=== PATIENT | female | born 1965 | race Asian ===

== ENCOUNTER 2018-11-26 08:05 | Outpatient (CLI) | payer BC, SELFPAY ==
[2018-11-26 08:55] LABS: Glucose 119 mg/dL (70-100)
== END 2018-11-26 08:25 ==
PROVIDERS: PCP Family Medicine; Visit Provider Family Medicine
DX: R73.9 Hyperglycemia, unspecified (principal)
CPT/HCPCS: 36415; 82947; 83036

== ENCOUNTER 2018-12-27 00:56 | Outpatient (CLI) | payer OTHER, SELFPAY ==
--- NOTE | 2018-12-27 14:50 | DI.MAMMO_ITS ---
SYMPTOM/DIAGNOSIS: SCREENING, Z12.31 MAMMOGRAMS: Mammograms were interpreted according to the usual protocol including computer analysis with CAD system, tomosynthesis and C view imaging. Comparison is with the prior examinations. No suspicious masses or microcalcifications are seen. There is no definite evidence of malignancy. IMPRESSION: Negative mammogram. Routine screening is recommended. Category 1, breast density C. MQSA ASSESSMENT OF FINDINGS: Negative. Category 1. Patient will receive a letter notifying them of these results. Bi-RADS category C. The breasts are heterogeneously dense, which may obscure small masses.
== END 2018-12-27 01:16 ==
PROVIDERS: PCP Family Medicine; Visit Provider Family Medicine
DX: Z12.31 Encounter for screening mammogram for malignant neoplasm of breast (principal)
CPT/HCPCS: 77063; 77067

== ENCOUNTER 2019-02-18 08:41 | Emergency (ER) | payer OTHER, SELFPAY ==
[2019-02-18 08:51] VITALS: BP 110/71; PULSE 81; RESP 16; TEMP 36.8; O2SAT 100
--- NOTE | 2019-02-18 09:05 | ED.GENADUL_ITS ---
Discharge Plan Disposition Patient Disposition: HOME Condition: Stable Discharge Details Chief Complaint: Cellulitis Clinical Impression: Cellulitis Primary Care Provider: Elizabeth Griffith ED Provider: Li Burns Home Meds and New Rx's Prescriptions: New doxycycline hyclate 100 mg capsule 100 mg PO BID Qty: 19 RF: 0 Continued hydrocortisone acetate [Proctocort] 30 mg suppository 30 mg [place] BID RF: 0 ketotifen fumarate [Allergy Eye (ketotifen)] 0.025 % (0.035 %) drops 1 drp OP BID RF: 0 fexofenadine 60 MG tablet 1 tab PO QAM RF: 0 ascorbate calcium (vitamin C) 500 MG tablet 1 tab PO QAM RF: 0 montelukast 10 MG tablet 1 tab PO QAM RF: 0 cholecalciferol (vitamin D3) 1,000 UNITS tablet 1 tab PO QAM RF: 0 Discharge Instructions Instructions: Doxycycline (By mouth), Cellulitis (ED) Additional Instructions: Please return immediately to the emergency department if you develop any new or worsening symptoms, if your symptoms do not improve as expected, or if you become otherwise concerned. It is extremely important that you call as soon as possible to schedule an appointment for this week to be seen in follow-up for this visit by your primary care doctor. Referrals: Elizabeth Griffith MD [Primary Care Provider] - Discharge Data Discharge Date/Time-TO BE ENTERED AT DEPARTURE: 02/18/19 11:29 Medical Decision Making Leticia Bahena is a 53 y/o woman with history of asthma presenting to the emergency department with 2 days of right lower leg pain and redness to the right lower leg since yesterday, otherwise asymptomatic. On exam patient is very well and nontoxic appearing. Erythema of the anterior right lower leg from ankle to the proximal lower leg, does not cross ankle or knee joint, clear line of demarcation just distal to the knee. +1 pitting edema of the right lower leg, no edema of the left leg. DP pulse barely palpable on the left, not palpable on the right, right foot warm and well-perfused. Full range of motion right knee, ankle. No pain with palpation of the posterior right calf. 0.5 cm very superficial healing skin wound to the right lateral lower leg, no drainage. No crepitus. Very mild pain with palpation of the erythematous area. Concern for cellulitis, DVT. Exam/history is not consistent with acute arterial pathology, sepsis, pulmonary embolism, necrotizing fasciitis.Uultrasound not available due to holiday, plan for screening labs, bedside ultrasound, nursing to Doppler right DP pulse. PT pulses intact and symmetric, b/l DP pulses present by doppler. [id number] bedside ultrasound performed by me, femoral vein and popliteal vein identified, good flow, compressible, no DVT identified. Labs resulted, non-diagnostic, d-dimer negative. Area of erythema outlined with surgical pen. Plan for doxycycline for cellulitis. Patient remains essentially asymptomatic other than rash, minimal leg pain in the area of erythema, no other pain or symptoms at this time. Continues to be very well-appearing and nontoxic. I had a lengthy discussion with the patient regarding return to emergency department precautions, home care, and importance of outpatient follow-up with her PCP this week. Patient verbalized understanding plan was amenable. All questions were answered. Patient was discharged home with clear plan for outpatient follow-up. Medical Records Medical records reviewed: Yes I reviewed the patient's medical records. Lab Data Lab results reviewed: Yes I reviewed the patient's lab results. Laboratory Tests Range/Units 02/18/19 02/18/19 02/18/19 09:52 09:52 09:52 WBC (4.4-10.8) k/cumm 6.43 RBC (4.00-5.20) m/cumm 4.67 Hgb (12.0-15.5) g/dL 14.4 Hct (36.0-46.0) % 42.1 MCV (80-95) fL 90.1 MCH (27.0-33.0) pg 30.8 MCHC (32.0-36.0) g/dL 34.2 RDW (11.7-14.6) % 13.4 Plt Count (130-400) x1000/uL 245 MPV (8.0-11.0) fL 9.9 Immature Gran % 0.2 Neutrophils % 68.5 Lymphocytes % 21.9 Monocytes % 7.5 Eosinophils % 1.7 Basophils % 0.2 Absolute Neutrophils (1.2-6.7) k/cumm 4.41 Absolute Lymphocytes (1.2-3.4) k/cumm 1.41 Absolute Monocytes (0.11-0.7) k/cumm 0.48 Absolute Eosinophils (0.0-0.7) k/cumm 0.11 Absolute Basophils (0.0-0.2) k/cumm 0.01 D-Dimer (<500) ng/mlFEU 275 Sodium (136-145) mmol/L 141 Potassium (3.5-5.1) mmol/L 3.9 Chloride (98-107) mmol/L 104 Carbon Dioxide (21.0-32.0) mmol/L 27.9 Anion Gap (3-11) mmol/L 9.1 BUN (7-18) mg/dL 24 H Creatinine (0.55-1.02) mg/dL 0.67 Estimated GFR/1.73 m2 (mL/min/1.73m2) >= 60.00 Glucose (70-100) mg/dL 113 H Calcium (8.5-10.1) mg/dL 8.6 Total Bilirubin (0.2-1.0) mg/dL 0.6 AST (15-37) U/L 18 ALT (14-59) U/L 24 Alkaline Phosphatase (46-116) U/L 115 Total Protein (6.4-8.2) g/dL 7.3 Albumin (3.4-5.0) g/dL 3.7 HPI General Mode of arrival: ambulatory . Date/Time Provider Initiated Documentation: 02/18/19 09:05 . Limitations to Documentation: no limitations . Information obtained by: patient, family, RN notes reviewed and old records reviewed . HPI Narrative: Leticia Bahena is a 53 y/o woman with history of asthma presenting to the emergency department with leg pain and redness. Patient reports that 2 days ago she noticed that her right lower leg seem generally painful. When she woke up yesterday morning she noticed redness of the leg that seems to have been worsening since onset. Patient reports that pain in the leg is unchanged, is limited to the area of the rash, is mild and feels like an aching sensation. Patient reports that she might of had a mosquito bite to lower leg that she scratched, but otherwise denies skin wound, insect bite/sting, or other trauma to the leg. Has been feeling otherwise in her usual state of health. No other pain, no fevers, no shortness of breath, no cough, no vomiting, no diarrhea, no other rash, no numbness, no weakness. Has been eating and drinking as usual. No recent immobilization, long car rides, or other travel. No history of blood clots in her or her family members. Related Data Home Medications Medication Instructions Recorded Confirmed ascorbate calcium (vitamin C) 1 tab PO QAM 09/21/13 02/18/19 cholecalciferol (vitamin D3) 1 tab PO QAM 09/21/13 02/18/19 fexofenadine 1 tab PO QAM 09/21/13 02/18/19 montelukast 1 tab PO QAM 09/21/13 02/18/19 hydrocortisone acetate 30 mg 30 mg WI BID 01/08/19 02/18/19 rectal suppository ketotifen fumarate 0.025 % (0.035 1 drp OP BID 01/08/19 02/18/19 %) eye drops doxycycline hyclate 100 mg PO BID #19 cap 02/18/19 Previous Rx's Medication Instructions Recorded doxycycline hyclate 100 mg PO BID #19 cap 02/18/19 Allergies Allergy/AdvReac Type Severity Reaction Status Date / Time Penicillins Allergy Unverified 02/18/19 08:53 General Stated Complaint: Cellulitis SULTANA: 4 Review of Systems Review of Systems Constitutional: denies fevers Eyes: denies eye pain ENT: denies facial pain, dental pain, sore throat Cardiovascular: denies chest pain Respiratory: denies SOB, cough GI: denies abdominal pain, vomiting, diarrhea : denies flank pain MSK: denies back pain, neck pain, arthralgias, myalgias Skin: Reports rash as per HPI Neuro: denies headaches, numbness, weakness [facility] Medical History Asthma (Chronic) Internal hemorrhoids [place] (Acute) Surgical History (Updated 04/04/18 @ 14:33 by [employer] [place]) Colonoscopy - IV Sedation Hemorrhoidectomy sinus surgery Family History (Updated 01/08/19 @ 09:05 by lAanna Maldonado RN) Other Diabetes Social History Smoking/Tobacco Use Status: Never Alcohol Intake: current Alcohol Intake frequency: a few times a month Drug use: Never Household members: spouse Exam Narrative Exam Narrative: Constitutional: well and [id number], pleasant, conversing normally HENT: head atraumatic/normocephalic/normal inspection, mucous membranes moist Eyes: conjunctiva normal, sclera normal, pupils 3mm b/l Neck: no stridor, normal ROM, trachea midline Resp: normal work of breathing, LCTAB Cardio: normal rate, normal rhythm, no murmur appreciated Skin: warm, dry, normal color, no rash Neuro: alert, not altered, grossly non-focal, normal tone Ext: Right leg with +1 pitting edema. Erythema anterior right lower leg from just distal to the knee to just proximal to the ankle, non-circumferential. Does not extend over joints. Full range of motion knee and ankle. no edema of the left leg. DP pulse barely palpable on the left, not palpable on the right, right foot warm and well-perfused, PT pulses intact and symmetric. Full range of motion right knee, ankle. No pain with palpation of the posterior right calf. 0.5 cm very superficial healing skin wound to the right lateral lower leg, no drainage. No crepitus. Very mild pain with palpation of the erythematous area. Walking about the emergency department without issue. Psych: normal mood, normal affect, normal behavior Course Vital Signs Temperature 36.8 C 02/18/19 08:51 Pulse 81 02/18/19 08:51 Respiratory Rate 16 02/18/19 08:51 Blood Pressure 110/71 02/18/19 08:51 Pulse Oximetry 100 02/18/19 08:51 Temperature 36.8 C 02/18/19 08:51 Temperature Source Skin 02/18/19 08:51 Pulse 81 02/18/19 08:51 Respiratory Rate 16 02/18/19 08:51 Respiratory Effort Non-Labored 02/18/19 08:54 Blood Pressure 110/71 02/18/19 08:51 Blood Pressure Position Sitting 02/18/19 08:51 Pulse Oximetry 100 02/18/19 08:51 Oxygen Delivery Method Room Air 02/18/19 08:51 Oxygen Flow Rate 0 02/18/19 08:51 Pain Level 7 02/18/19 08:51
[2019-02-18 09:59] LABS: Abs Immature Grans 0.01 k/cumm (0.0-0.09); Absolute Basophil Count 0.01 k/cumm (0.0-0.2); Absolute Eosinophil Count 0.11 k/cumm (0.0-0.7); Absolute Lymphocyte Count 1.41 k/cumm (1.2-3.4); Absolute Monocyte Count 0.48 k/cumm (0.11-0.7); Absolute Neutrophil Count 4.41 k/cumm (1.2-6.7); Basophils % 0.2; Eosinophils % 1.7; HCT 42.1 % (36.0-46.0); HGB 14.4 g/dL (12.0-15.5); Immature Grans % 0.2; Lymphocytes % 21.9; Mean Corp. HGB Concentration 34.2 g/dL (32.0-36.0); Mean Corpuscular Hemoglobin 30.8 pg (27.0-33.0); Mean Corpuscular Volume 90.1 fL (80-95); Mean Platelet Volume 9.9 fL (8.0-11.0); Monocytes % 7.5; Neutrophils % 68.5; Platelet Count 245 x1000/uL (130-400); RBC 4.67 m/cumm (4.00-5.20); RBC Distribution Width 13.4 % (11.7-14.6); White Blood Cell Count 6.43 k/cumm (4.4-10.8)
[2019-02-18 10:13] LABS: ALT 24 U/L (14-59); AST 18 U/L (15-37); Albumin 3.7 g/dL (3.4-5.0); Alkaline Phosphatase 115 U/L (46-116); Anion Gap 9.1 mmol/L (3-11); BUN 24 mg/dL (7-18); Bilirubin, Total 0.6 mg/dL (0.2-1.0); CO2 27.9 mmol/L (21.0-32.0); CREATININE 0.67 mg/dL (0.55-1.02); Calcium 8.6 mg/dL (8.5-10.1); Chloride 104 mmol/L (98-107); Glucose 113 mg/dL (70-100); Potassium 3.9 mmol/L (3.5-5.1); Sodium 141 mmol/L (136-145); Total Protein 7.3 g/dL (6.4-8.2)
[2019-02-18 10:31] LABS: D-Dimer 275 ng/mlFEU (<500)
[2019-02-18 11:21] VITALS: BP 110/71; PULSE 81; RESP 16; TEMP 36.8; O2SAT 100
[2019-02-18] MEDS: Doxycycline Hyclate 100 MG CAP PO (11:29)
== END 2019-02-18 11:29 | disposition home or self-care (01) ==
PROVIDERS: Emergency Provider Student in an Organized Health Care Education/Training Program; PCP Family Medicine
DX: L03.115 Cellulitis of right lower limb (principal)
CPT/HCPCS: 36415; 80053; 99283; 85025; 85379

== ENCOUNTER 2019-12-04 07:55 | Outpatient (REF) | payer OTHER, SELFPAY ==
[2019-12-04 15:00] LABS: Glucose 104 mg/dL (74-106)
[2019-12-04 15:01] LABS: Hemoglobin A1C 5.9 % (3.8-5.6)
== END 2019-12-04 08:15 ==
LOC: NCHCN 07:55
PROVIDERS: PCP Family Medicine; Visit Provider Family Medicine
DX: R73.03 Prediabetes (principal)
CPT/HCPCS: 82947; 83036

== ENCOUNTER 2020-01-01 00:46 | Outpatient (CLI) | payer OTHER, SELFPAY ==
--- NOTE | 2020-01-01 | DI.MAMMO_ITS ---
EXAM: MG MAMMO SCREENING CLINICAL HISTORY: SCREENING, Z12.31 TECHNIQUE: Mammograms were interpreted according to the usual protocol including computer analysis w [employer] CAD system, tomosynthesis and C-view imaging. COMPARISON: FINDINGS: The breasts are heterogeneously dense. No dominant mass or clumped microcalcification is identified in either breast. The current examination is compared with previous examinations including December 2018 and there has been no gross interval change in appearance comparison with the prior studies. IMPRESSION: No specific evidence of malignancy at this time. Routine screening examinations are suggested yearly intervals in this age group according to the ACS ACR guidelines. Category: BI-RADS Cat 1 - Negative Breast Density - Category C - Heterogeneously dense
== END 2020-01-01 01:06 ==
PROVIDERS: PCP Family Medicine; Visit Provider Family Medicine
DX: Z12.31 Encounter for screening mammogram for malignant neoplasm of breast (principal)
CPT/HCPCS: 77063; 77067

== ENCOUNTER 2020-01-17 09:51 | Outpatient (REF) | payer OTHER, SELFPAY ==
--- NOTE | 2020-01-17 08:37 | PAPFT_PTH ---
PATIENT: Leticia Bahena LOC: [facility] U#:[id number] AGE/SX: 54/F ROOM: RE01/17/[address]: Erika Macias DO : 1965 BED: DIS: 01/17/2020 SPEC #: [id number] RECD: 01/17/20 12:43 STATUS: DAINA REQ #: [id number] GARRETT: 01/17/20 08:[address]: Erika Macias DEPT: [facility], [facility] Cytology RECD BY: Janee Herrera ENTERED: 01/17/20 12:43 SP TYPE: PAPFT OTHR DR: Elizabeth Griffith Tissues: 1 - CX/ENDOCX FOR PAP SMEARS Procedures: PAP THIN PREP/[facility] Screening Comments: [id number] (UNSATISFACTORY FOR EVALUATION)
== END 2020-01-17 10:11 ==
LOC: LBN 09:51
PROVIDERS: PCP Family Medicine; Visit Provider Obstetrics & Gynecology
DX: R87.618 Other abnormal cytological findings on specimens from cervix uteri (principal)
CPT/HCPCS: 88142

== ENCOUNTER 2021-02-01 10:06 | Outpatient (REF) | payer OTHER, SELFPAY ==
--- NOTE | 2021-02-01 09:15 | PAPFT_PTH ---
PATIENT: Leticia Bahena LOC: [facility]#:[id number] AGE/SX: 55/F ROOM: RE02/01/[address]: Elizabeth Griffith : 1965 BED: DIS: 02/01/2021 SPEC #: [id number] RECD: 02/01/21 17:33 STATUS: DAINA REJon #: [id number] GARRETT: 02/01/21 09:[address]: Elizabeth Griffith DEPT: [facility] Cytology RECD BY: Janee Herrera Tissues: 1 - CX/ENDOCX FOR PAP SMEARS Procedures: PAP THIN PREP/[facility] Screening HPV DNA PROBE Comments: [id number]
== END 2021-02-01 10:07 | disposition home or self-care (01) ==
LOC: NCHCN 10:06
PROVIDERS: PCP Family Medicine; Visit Provider Family Medicine
DX: Z00.00 Encounter for general adult medical examination without abnormal findings (principal); Z12.4 Encounter for screening for malignant neoplasm of cervix; Z11.51 Encounter for screening for human papillomavirus (HPV)
CPT/HCPCS: 88142; 87624